=== PATIENT | female | born 1980 | race Hispanic/Latino ===

== ENCOUNTER 2016-11-29 11:07 | Outpatient (CLI) | payer OTHER ==
--- NOTE | 2016-11-29 14:13 | Ultrasound Report ---
TRANSABDOMINAL AND TRANSVAGINAL PELVIC ULTRASOUND: 11/29/16 11:07:00 CLINICAL: Irregular menses. FINDINGS: Transabdominal and transvaginal pelvic ultrasound demonstrated a retroflexed uterus measuring 8.7 x 5.2 x 5.8 cm. Normal uterine contour and echogenicity.The endometrium measures 15.0 mm in AP thickness. An oval hypoechoic posterior fundal submucosal fibroid measures 1.0 x 0.9 x 0.5 cm. No other fibroids identified. Normal right ovary with a dominant 1.9 cm follicle. The right ovary measures 2.8 x 2.3 x 2.5cm. The left ovary measures 2.6 x 1.6 x 2.4cm. No adnexal mass. No free fluid. Normal urinary bladder. IMPRESSION: 1. A single 1 cm submucosal fibroid. 2. Normal ovaries.
== END 2016-11-29 11:08 | disposition home or self-care (01) ==
LOC: SPVWC 11:07
PROVIDERS: ATTEND Family Medicine
DX: D25.0 Submucous leiomyoma of uterus (principal)
CPT/HCPCS: 76830; 76856